=== PATIENT | male | born 1970 | race Caucasian/White ===

== ENCOUNTER 2025-02-13 19:46 | Emergency (ER) | payer OTHER, SELFPAY ==
[2025-02-13 19:53] VITALS: BP 140/83
[2025-02-13 20:21] LABS: % Basophils 0.7 % (0-2); % Eosinophils 2.5 % (0-6); % Immature Granulocytes 0.3 % (0-0.5); % Lymphocytes 29.1 % (20.5-51.1); % Monocytes 8.1 % (1.7-9.3); % Neutrophils 59.3 % (42.2-75.2); Absolute Eosinophils 0.2 10^3/uL (0-0.7); Absolute Lymphocytes 1.8 10^3/uL (1.2-3.4); Absolute Monocytes 0.5 10^3/uL (0.1-0.6); Absolute Neutrophils 3.6 10^3/uL (1.4-6.5); Hemoglobin 15.1 g/dL (13.0-18.0); Mean Corpuscular Hgb 30.3 pg (27.0-31.0); Mean Corpuscular Volume 84.2 fL (80.0-94.0); Mean Platelet Volume 10.3 fL (7.4-10.4); Nucleated Red Blood Cells % 0 % (-); Platelet Count 201 10^3/uL (130-400); Red Blood Cell Count 4.99 10^6/uL (4.70-6.10)
[2025-02-13 20:38] LABS: ALT (SGPT) 32 U/L (0-50); AST (SGOT) 25 U/L (17-59); Albumin 3.8 g/dl (3.5-5.0); Alkaline Phosphatase 104 U/L (38-126); Blood Urea Nitrogen 15 mg/dl (9-20); Calcium 9.2 mg/dl (8.4-10.2); Carbon Dioxide 27 mmol/L (22-30); Chloride 101 mmol/L (98-107); Glucose 329 mg/dl (70-99); Potassium 4.1 mmol/L (3.5-5.1); Sodium 136 mmol/L (135-145); Total Protein 6.1 g/dl (6.3-8.2); eGFR > 60.00
[2025-02-13 20:49] LABS: Troponin I < 0.012 ng/ml
[2025-02-13 21:41] VITALS: BP 125/81
--- NOTE | 2025-02-13 21:44 | ED.GENMED ---
History of Present Illness
General
Chief Complaint: Chest Pain
Source: patient
Exam Limitations: none
Time Seen by Provider: 02/13/25 21:43
Nursing documentation reviewed up to this point in time: agreed with
History of Present Illness
History of Present Illness:
55 yr [id number] male presents to the ER for evaluation. Patient reports 2 days ago he had pressure/tightness in his anterior chest while sitting. He reports it lasted for hours. He had no associated shortness of breath. Patient was fine
yesterday but then today while sitting at work again he started with anterior chest pressure since 2 PM. Pain has been constant since he reports it is not a pain but more pressure. When he takes a deep breath then he feels a slightly better. Also
while sitting having dinner he had noticed some tingling in his right arm and the pain in the back of his head. He has had no associated shortness of breath. No prior history of CAD or angina. He does not smoke. His father had NH/stroke and
in his 70s. Patient reports he has been under a lot of stress at work. Patient has also noticed that he is felt bloated intermittently belchy recently. He
Past History
Past History
ED Past Medical History: Other (Hypertension, previous kidney infection, previous meningitis)
Social History
Tobacco: Non-smoker
Alcohol: Occasional
Family History
Family History: Diabetes and Hypertension
Phy Exam
General Physical Exam
General Presentation: no apparent distress
General age: appears stated age
General Skin: warm and dry
General Habitus: normal
General Mental: alert
General Hydration: appears well hydrated
Eye Exam
Eye Exam: PERRL
Eye Exam General: PERRL: bilateral and EOM intact: bilateral
Pupil Exam: Bilateral: round and reactive
Cardiovascular Exam
Cardiovascular Exam: regular rate/rhythm, no murmur and normal peripheral pulses
Pulmonary Exam
Pulmonary Exam: lungs clear and no respiratory distress
Neurological Exam
Neurological Exam: alert and oriented x3
Musculoskeletal Exam
Musculoskeletal Exam: full ROM
Skin Exam
Skin Exam: normal color and warm/dry
Psychiatric Exam
Psychiatric Exam: normal mood/affect
Scores
Heart Score for Chest Pain Patients
STEMI patient?: Not applicable
Course
Orders/Labs/Results
Orders:
Orders
02/13/25 19:46
Electrocardiogram (*1) Urgent
Reason for Study: Chest Pain
02/13/25 19:47
EKG- Treatment ONCE
02/13/25 20:01
Complete Blood Count/With Diff Urgent
Comprehensive Metabolic Panel Urgent
Troponin I Urgent
02/13/25 22:10
EKG- Treatment ONCE
IV Insert/Care/Rem.- Treatment PRN
0.9% Sodium Chloride 1000 ml [Nss] 1,000 ml IV BOLUS
Chest [CR Chest - 2 Views ] Urgent
Comment:
Reason For Exam: cp
02/13/25 22:16
Mag Hydrox/Al Hydrox/Simeth [Maalox] 30 ml Phenobarb/Hyoscy/Atropine/Scop [] 10 ml PO NOW
02/13/25 22:20
Mag Hydrox/Al Hydrox/Simeth [Maalox] 30 ml .ROUTE .STK-MED ONE
Phenobarb/Hyoscy/Atropine/Scop [] 10 ml .ROUTE .STK-MED ONE
02/13/25 23:00
Electrocardiogram (*1) Stat
Reason for Study: Other
Other Reason for Exam: chest pain
02/13/25 23:10
Troponin I Urgent
Abnormal Lab Results
02/13/25 02/14/25
20:01 00:13
Glucose 329 H mg/dl
(70-99)
Total Protein 6.1 L g/dl
(6.3-8.2)
POC Glucose 229 H mg/dl
(70-99)
02/13/25 20:01
02/13/25 20:01
Vital Signs
Initial and Last Documented VS:
Initial Vital Signs
Temp Pulse Resp BP Pulse Ox
98.2 F 83 18 140/83 97
02/13/25 19:53 02/13/25 19:53 02/13/25 19:53 02/13/25 19:53 02/13/25 19:53
Last Documented Vital Signs
Temp Pulse Resp BP Pulse Ox
98.2 F 76 16 140/90 93
02/13/25 19:53 02/13/25 22:15 02/14/25 00:17 02/13/25 22:00 02/13/25 22:15
MDM/Problems Addressed
MDM/Problems Addressed:
As documented patient is a 55-year-old male who presented to the ER for evaluation. Patient has had intermittent episodes of chest discomfort and pressure. He had this 2 days ago nothing yesterday and then back again today while sitting at work at
2 PM. Incidentally and I do not feel that this is related ;he has had some discomfort in the back of his head that he describes as feeling sore; he denies any actual headache. He has had some intermittent mild right arm tingling. He does report
he is under a lot of stress at work.
He has had a lot of belching over the past week. He does feel bloated. On exam he is in no acute distress lungs are clear regular rate rhythm abdomen soft nontender. He does not have a history of reflux however history of will try GI cocktail .
His initial troponin is negative and his EKG is normal. But will still repeat a second troponin given the fact the patient had discomfort today as well. His chest discomfort started at 2 PM today. His symptoms were not associate with exertion.
He is no cardiac history.
He is a diabetic his blood sugar was elevated in the 300s we will give fluids. he is on metformin does not check his sugars.
If repeat troponin is negative then we will plan for discharge home with chest pain hotline.
pt on re-exam is feeling better in no distress. it is unclear if GI cocktail helped his symptoms he typically does not have reflux. Will continue to discharge with chest pain hotline follow-up.
Instructed patient also to closely follow-up with his family doctor for reevaluation of blood sugar
*Radiology
Radiology exam reviewed: radiology read reviewed
*Pulse Oximetry
Patient hypoxic: no
*EKG
Interpreted by ED Provider?: Yes
Interpretation: normal
Heart Rate: 85
Rate: normal
Rhythm: sinus
Ischemia: other (Repeat EKG done at 2357 normal sinus rhythm heart rate 68 no changes)
*Critical Care Note
Total Time (30-74mins, 75-104mins- exclusive of procedures): Not Applicable
ED Attending Note
-
Portions of this chart may have been created with voice recognition software.� Occasional wrong word or��sound alike� substitutions may have occurred due to the inherent limitations of voice recognition software.
Discharge Plan
Departure
Patient Disposition: Home (Routine Discharge)
Date of Disposition: 02/14/25
Time of Disposition: 00:08
Patient with high blood pressure during this ER visit?: Yes
Condition: Fair
Covid-19: Not Applicable
Discharge Problem:
Chest pain
Instructions: Chest Pain CBC Follow Up
Prescriptions:
No Action
multivitamin [[id number]] 1 EACH tablet
1 ea PO DAILY
chlorthalidone 25 MG tablet
25 mg PO DAILY
metformin [Fortamet] 500 MG tablet extended release 24hr
500 mg PO BID Qty: 30 0RF
Referrals:
Felipe Wahl DO [Family Provider] -
Tom Veloz MD [Active] -
Activity Restrictions/Additional Instructions:
As discussed you are placed on the chest pain hotline which means you should receive a phone call in the next 1 to 2 days from the office if you do not please call them to schedule an appointment as soon as possible.
In addition your blood sugar was elevated today here in the ER continue your metformin however please follow-up with family doctor for reevaluation of elevated blood sugar.
Return if any worsening of symptoms.
Interventions
Interventions:
*Risk Screen - Suicide Last Done: 02/13/25 19:53
*General Assessment Last Done: 02/13/25 19:53
*Neglect/Abuse Screening Last Done: 02/13/25 19:53
*ED- Fall Risk Assessment Last Done: 02/14/25 00:17
*ED COVID-19 Vaccine History Last Done: 02/14/25 00:17
*Nursing Disposition Last Done: 02/14/25 00:17
ED- Cardiac Assessment Last Done: 02/14/25 00:05
Discharge Date and Time
Discharge Date/Time: 02/14/25 00:23
Print Language: CHINESE
[2025-02-13 22:00] VITALS: BP 140/90
[2025-02-13] MEDS: MAALOX 40 PO (22:21)
[2025-02-13] MEDS: NSS 1000 IV (23:11)
[2025-02-13 23:44] LABS: Troponin I < 0.012 ng/ml
[2025-02-14 00:17] LABS: Glucose - Point of Care 229 mg/dl (70-99)
== END 2025-02-14 00:23 | disposition home or self-care (01) ==
LOC: EMR 19:46
PROVIDERS: Nurse Practitioner; EMERGENCY PHYSICIAN Student in an Organized Health Care Education/Training Program; FAMILY PHYSICIAN Student in an Organized Health Care Education/Training Program
DX: R07.89 Other chest pain (principal); I10 Essential (primary) hypertension; E11.65 Type 2 diabetes mellitus with hyperglycemia; Z56.6 Other physical and mental strain related to work; Z79.84 Long term (current) use of oral hypoglycemic drugs
CPT/HCPCS: 96360; 99285; 71046; 80053; 82962; 84484; 85025; 93005